=== PATIENT | female | born 1975 | race Caucasian/White ===

== ENCOUNTER 2019-12-09 10:16 | Emergency (ER) | payer SELFPAY ==
[~2019-12-09] VITALS: Ht 165.1 cm; Wt 79.8 kg
[2019-12-09] MEDS ORDERED: IBUPROFEN 800 MG TAB PO ONE (10:30)
[2019-12-09 10:31] VITALS: BP 132/63
[2019-12-09] MEDS ORDERED: HYDROcodone-ACET 7.5/325MG TAB PO ONE (10:45)
== END 2019-12-09 11:46 | disposition left against medical advice (07) ==
LOC: ER 10:16
DX: S82.51XA Displaced fracture of medial malleolus of right tibia, initial encounter for closed fracture (principal); S82.451A Displaced comminuted fracture of shaft of right fibula, initial encounter for closed fracture; S93.311A Subluxation of tarsal joint of right foot, initial encounter; W01.0XXA Fall on same level from slipping, tripping and stumbling without subsequent striking against object, initial encounter; Y93.89 Activity, other specified; Y92.89 Other specified places as the place of occurrence of the external cause; Y99.8 Other external cause status
CPT/HCPCS: 29515; 73610